=== PATIENT | female | born 1990 | race Two or more races ===

== ENCOUNTER 2024-11-04 12:38 | Emergency (ER) | payer OTHER ==
[~2024-11-04] VITALS: Ht 160 cm; Wt 82.6 kg
[2024-11-04 16:06] LABS: BASO % 0.3 % (0.1-1.2); EOS # 0.11 (0.04-0.54); EOS % 1.4 % (0.7-7.0); HEMATOCRIT 32.5 % (34.1-44.9); HEMOGLOBIN 10.8 g/dL (11.2-15.7); LYMPH # 1.26 (1.18-3.74); LYMPH % 16.3 % (19.3-53.1); MEAN CORPUSCULAR HEMOGLOBIN 28.5 pg (25.6-32.2); MONO # 0.91 (0.24-0.82); MONO % 11.7 % (4.7-12.5); NEUT # 5.34 (1.56-6.13); NEUT % 68.9 % (34.0-71.1); PLATELET COUNT 214 K/uL (163-369); RED BLOOD COUNT 3.79 M/uL (3.93-5.22); RED CELL DISTRIBUTION WIDTH 13.6 % (11.6-14.4)
[2024-11-04 16:27] LABS: COVID-19 AG NEGATIVE (NEGATIVE)
[2024-11-04 16:40] LABS: INFLUENZA A AG NEGATIVE (NEGATIVE); INFLUENZA B AG NEGATIVE (NEGATIVE)
[2024-11-04 16:43] LABS: CALCIUM 8.8 mg/dL (8.5-10.1); CREATININE SERUM 0.55 mg/dL (0.55-1.02); GFR 128.09; POTASSIUM 3.52 mEq/L (3.5-5.1)
== END 2024-11-04 17:34 | disposition home or self-care (01) ==
LOC: ER 12:54
DX: O98.512 Other viral diseases complicating pregnancy, second trimester (principal); Z3A.24 24 weeks gestation of pregnancy; B34.9 Viral infection, unspecified; Z20.822 Contact with and (suspected) exposure to COVID-19

== ENCOUNTER 2025-01-25 09:35 | Outpatient (CLI) | payer OTHER | END 2025-01-25 10:30 | disposition home or self-care (01) | LOC: NST 09:35 | PROVIDERS: ATTEND Obstetrics & Gynecology Gynecology | DX: Z34.83 Encounter for supervision of other normal pregnancy, third trimester (principal) ==

== ENCOUNTER 2025-02-08 14:30 | Inpatient (IN) | payer OTHER ==
[~2025-02-08] VITALS: Ht 160 cm; Wt 3.2 kg
[2025-02-13] MEDS ORDERED: MORPHINE SULFATE 4 MG/ML CARTRIDGE IV PRN ×2 (06:45→18:30)
[2025-02-13] MEDS ORDERED: OXYTOCIN 500 ML IV SCH (06:45)
[2025-02-13] MEDS ORDERED: RINGERS SOLUTION,LACTATED 1,000 ML IV SCH ×2 (06:45→18:30)
[2025-02-13 06:51] VITALS: BP 114/76
[2025-02-13] MEDS ORDERED: PRENATAL + DHA1 EAC1 PO (06:51)
[2025-02-13] MEDS ORDERED: OXYTOCIN 500 ML IV ONE (07:45)
[2025-02-13 08:05] VITALS: BP 114/76
[2025-02-13 08:42] LABS: URINE APPEARANCE Clear; URINE BILIRRUBIN Negative (NEGATIVE); URINE BLOOD Negative; URINE COLOR Yellow; URINE GLUCOSE Negative (NEGATIVE); URINE KETONE Negative (NEGATIVE); URINE LEUKOCYTE Negative; URINE NITRATE Negative; URINE PROTEIN Negative (NEGATIVE); URINE UROBILINOGEN 0.2 E.U./dl
[2025-02-13 08:44] LABS: BASO % 0.3 % (0.1-1.2); EOS # 0.02 (0.04-0.54); EOS % 0.3 % (0.7-7.0); LYMPH # 1.63 (1.18-3.74); LYMPH % 24.8 % (19.3-53.1); MEAN PLATELET VOLUME 13.10 fl (9.4-12.4); MONO # 0.79 (0.24-0.82); MONO % 12.0 % (4.7-12.5); NEUT # 4.03 (1.56-6.13); NEUT % 61.5 % (34.0-71.1); RED CELL DISTRIBUTION WIDTH 14.7 % (11.6-14.4)
[2025-02-13 08:47] LABS: URINE BACTERIA 2639.7 uL (0.0-1933); URINE CAST 1.75 uL (0.0-1.40); URINE EPITHELIAL CELLS 21.2 uL (0.0-38.8); URINE RBC 6.8 uL (0.0-20.8); URINE WBC 19.2 uL (0.0-23.2)
[2025-02-13 09:25] LABS: ALT/SGPT 99.0 U/L (12-78); AST/SGOT 42.0 U/L (15-37); BILIRUBIN TOTAL 0.54 mg/dL (0.3-1.2); BUN CREA RATIO 21.0 (7.0-25.0); CREATININE SERUM 0.47 mg/dL (0.55-1.02); GFR 153.56; GLOBULINA 3.6 G/DL (2.4-3.5); GLUCOSE FASTING 87.0 mg/dL (65-100); OSMOLALITY SERUM 280.0 MOSM/KG (275-295)
[2025-02-13 09:32] LABS: INR 0.98
[2025-02-13 11:07] VITALS: BP 117/79
[2025-02-13] MEDS ORDERED: ONDANSETRON HCL 2 MG/ML VIAL ONE ×2 (14:27→20:53)
[2025-02-13 15:21] VITALS: BP 137/71
[2025-02-13] MEDS ORDERED: CHLORHEXIDINE GLUCONATE 120 ML BOTTLE TOP ONE (15:32)
[2025-02-13] MEDS ORDERED: LIDOCAINE HCL 1% 10ML VIAL ONE (15:32)
[2025-02-13] MEDS ORDERED: OXYTOCIN 20 UNITS/1000ML RL PIGGYBAG IV ONE (15:32)
[2025-02-13] MEDS ORDERED: ERYTHROMYCIN BASE OPHT 1GM EACH TUBE OP ONE ×3 (15:32→20:45)
[2025-02-13] MEDS ORDERED: OXYTOCIN 10 UNITS/ML VIAL ONE ×2 (18:10→22:03)
[2025-02-13] MEDS ORDERED: OXYTOCIN 1,000 ML IV ONE (18:30)
[2025-02-13] MEDS ORDERED: CEFAZOLIN SODIUM 1,000 MG VIAL ONE (19:02)
[2025-02-13] MEDS ORDERED: ONDANSETRON HCL 2 MG/ML VIAL IV ONE (20:45)
[2025-02-13] MEDS ORDERED: OXYTOCIN 10 UNITS/ML VIAL IY ONE (20:45)
[2025-02-13] MEDS ORDERED: MORPHINE SULFATE 4 MG/ML VIAL IV ONE ×2 (20:45→21:45)
[2025-02-13] MEDS ORDERED: KETOROLAC TROMETHAMINE 30 MG VIAL ONE (23:21)
[2025-02-14] MEDS ORDERED: KETOROLAC TROMETHAMINE 30 MG VIAL IV SCH
[2025-02-14] MEDS ORDERED: ONDANSETRON HCL 2 MG/ML VIAL IV SCH
[2025-02-14] MEDS ORDERED: ACETAMINOPHEN 500 MG GEL..CAP PO SCH
[2025-02-14] MEDS ORDERED: SIMETHICONE 125 MG CAPSULE PO SCH (01:00)
[2025-02-14] MEDS ORDERED: GABAPENTIN 300 MG CAPSULE PO SCH (01:00)
[2025-02-14 01:39] VITALS: BP 123/77
[2025-02-14 06:19] LABS: BASO % 0.1 % (0.1-1.2); EOS # 0.01 (0.04-0.54); EOS % 0.1 % (0.7-7.0); LYMPH # 1.34 (1.18-3.74); LYMPH % 16.0 % (19.3-53.1); MEAN PLATELET VOLUME 13.30 fl (9.4-12.4); MONO # 0.89 (0.24-0.82); MONO % 10.6 % (4.7-12.5); NEUT # 6.09 (1.56-6.13); NEUT % 72.7 % (34.0-71.1); RED CELL DISTRIBUTION WIDTH 14.7 % (11.6-14.4)
[2025-02-14] MEDS ORDERED: FF) RHO(D) IMMUNE GLOBULIN (POM) IM NR (08:00)
[2025-02-14] MEDS ORDERED: KETOROLAC TROMETHAMINE 10 MG TABLET PO SCH (08:00)
[2025-02-14] MEDS ORDERED: OxyCODONE HCL 5 MG TABLET (ROXICODONE) PO PRN (08:00)
[2025-02-14] MEDS ORDERED: DOCUSATE SODIUM 100MG CAP PO SCH (09:00)
[2025-02-14 09:25] VITALS: BP 118/79
[2025-02-14 16:33] VITALS: BP 134/76
[2025-02-15] VITALS: BP 121/85
[2025-02-15 08:50] VITALS: BP 133/88
== END 2025-02-15 13:37 | disposition home or self-care (01) | DRG 788 ==
LOC: LDR 02-13 07:17 → OB/GYN 02-13 15:15 → O/R 02-13 18:56 → OB/GYN 02-13 20:15
PROVIDERS: Obstetrics & Gynecology; ADMIT Obstetrics & Gynecology Gynecology; ATTEND Obstetrics & Gynecology Gynecology
PROC: 4A1HXCZ Monitoring of Products of Conception, Cardiac Rate, External Approach (ICD-10-PCS; 2025-02-13)
PROC: 10D00Z1 Extraction of Products of Conception, Low, Open Approach (ICD-10-PCS; principal; 2025-02-13 17:15)
DX: O82 Encounter for cesarean delivery without indication (principal); O62.0 Primary inadequate contractions; Z3A.38 38 weeks gestation of pregnancy; Z37.0 Single live birth

== ENCOUNTER 2025-02-12 10:52 | Outpatient (CLI) | payer OTHER ==
[2025-02-13] MEDS ORDERED: PRENATAL + DHA1 EAC1 PO (06:51)
== END 2025-02-12 11:50 | disposition home or self-care (01) ==
LOC: NST 10:52
PROVIDERS: ATTEND Obstetrics & Gynecology Gynecology
DX: Z34.83 Encounter for supervision of other normal pregnancy, third trimester (principal)